=== PATIENT | female | born 1935 | race Caucasian/White ===

== ENCOUNTER 2021-08-28 15:23 | Inpatient (IN) | payer OTHER, MEDICARE ==
[2021-08-28] MEDS ORDERED: ACETAMINOPHEN 325 MG TABLET (FP) PO ONE (16:30)
[2021-08-28] MEDS ORDERED: LIDOCAINE HCL 2% (50ML VIAL) SQ ONE (17:32)
[2021-08-28] MEDS ORDERED: ACETAMINOPHEN 325 MG TABLET (FP) ONE (17:42)
[2021-08-28] MEDS ORDERED: LIDOCAINE HCL 2% (20ML MULTI-DOSE VIAL) ONE (17:42)
[2021-08-28 18:29] LABS: BASO % 1.1 % (0-2.0); EOS % 0.9 % (0-4.5); HEMATOCRIT 35.6 % (32.4-45.2); HEMOGLOBIN 11.9 GM/dL (10.7-15.3); LYMPH % 19.9 % (8-40); MCH 30.9 pg (25.7-33.7); MCHC 33.5 g/dl (32.0-36.0); MEAN CELL VOLUME 92.2 fl (80-96); MEAN PLT VOLUME 8.3 fl (7.5-11.1); MONO % 7.5 % (3.8-10.2); NEUT % 70.6 % (42.8-82.8); PLATELET COUNT 299 10^3/uL (134-434); RBC 3.86 M/mm3 (3.60-5.2); RDW 13.7 % (11.6-15.6)
[2021-08-28 18:30] LABS: INR 0.98 (0.83-1.09); PROTHROMBIN TIME (PATIENT) 11.5 SEC (9.7-13.0)
[2021-08-28 18:46] LABS: ALBUMIN 3.7 g/dl (3.4-5.0); BLOOD UREA NITROGEN 11.5 mg/dL (7-18)
[2021-08-28 18:49] LABS: CREATININE 0.6 mg/dL (0.55-1.3)
[2021-08-28 18:50] LABS: BILIRUBIN,TOTAL 0.4 mg/dL (0.2-1)
[2021-08-28 18:51] LABS: TOT PROT 6.8 g/dl (6.4-8.2)
[2021-08-28] MEDS ORDERED: ACETAMINOPHEN 325 MG TABLET (FP) PO PRN (23:33)
[2021-08-29 01:12] LABS: EPI CELLS 11 /uL (0-25.1); HYALINE CASTS 2 /uL (0-3.1); PH,URINE 6.5 (5.0-8.0); URINE APPEARANCE CLOUDY; URINE BACTERIA 6168 /uL (0-1359); URINE BILIRUBIN NEGATIVE (NEGATIVE); URINE COLOR YELLOW; URINE GLUCOSE (UA) NEGATIVE (NEGATIVE); URINE KETONE NEGATIVE (NEGATIVE); URINE LEUK ESTERASE 3+ (NEGATIVE); URINE NITRITE POSITIVE (NEGATIVE); URINE PROTEIN TRACE (NEGATIVE); URINE RBC 32 /uL (0-23.9); URINE UROBILINOGEN 0.2 mg/dL (0.2-1.0); URINE WBC 1486 /uL (0-25.8)
[2021-08-29 02:39] VITALS: BMI 23.1
[2021-08-29] MEDS ORDERED: cefTRIAXone SODIUM 1 GM VIAL ONE ×2 (02:48→10:29)
[2021-08-29] MEDS ORDERED: DEXTROSE 5%-WATER - 50 ML IVPB ONE ×2 (02:49→10:29)
[2021-08-29] MEDS: CEFTRIAXONE 1 GM in DEXTROSE 5%-WATER - 50 ML IVPB SCH ×2 (03:00→10:32)
[2021-08-29] MEDS ORDERED: SODIUM CHLORIDE 1,000 ML IV SCH (04:00)
[2021-08-29 09:29] LABS: HEMATOCRIT 32.1 % (32.4-45.2); HEMOGLOBIN 10.9 GM/dL (10.7-15.3); MCH 31.5 pg (25.7-33.7); MEAN CELL VOLUME 92.6 fl (80-96); MEAN PLT VOLUME 8.3 fl (7.5-11.1); PLATELET COUNT 278 10^3/uL (134-434); RBC 3.46 M/mm3 (3.60-5.2); RDW 13.5 % (11.6-15.6); WHITE BLOOD COUNT 7.1 K/mm3 (4.0-10.0)
[2021-08-29] MEDS ORDERED: HYDROCHLOROTHIAZIDE 12.5 MG CAPSULE (FP) PO SCH (10:00)
[2021-08-29] MEDS ORDERED: LISINOPRIL 20 MG TABLET PO SCH (10:00)
[2021-08-29 14:01] LABS: BLOOD UREA NITROGEN 10.1 mg/dL (7-18); CALCIUM 8.2 mg/dL (8.5-10.1); CREATININE 0.6 mg/dL (0.55-1.3); MAGNESIUM 1.9 mg/dL (1.8-2.4); PHOSPHOROUS 2.8 mg/dL (2.5-4.9)
[2021-08-29] MEDS ORDERED: MIDAZOLAM HCL 2 MG/2 ML SINGLE DOSE VIAL ONE (14:25)
[2021-08-29] MEDS ORDERED: ROPIVACAINE HCL 0.5% 30ML VIAL ONE (14:27)
[2021-08-29] MEDS ORDERED: PROPOFOL 20 ML ONE ×3 (14:39→16:27)
[2021-08-29] MEDS ORDERED: LIDOCAINE HCL/PF 2% SDV 5ML VIAL ONE (14:39)
[2021-08-29] MEDS ORDERED: ceFAZolin SODIUM 1 GM VIAL ONE (15:12)
[2021-08-29] MEDS ORDERED: ceFAZolin 2 GRAM PREMIX BAG IVPB ONE (15:14)
[2021-08-29] MEDS ORDERED: ONDANSETRON 4 MG/2 ML VIAL IVPUSH PRN (15:25)
[2021-08-29] MEDS ORDERED: LACTATED RINGERS SOLUTION 1,000 ML IV SCH (15:30)
[2021-08-29] MEDS: SODIUM CHLORIDE 1,000 ML IV SCH (19:03)
[2021-08-29] MEDS: ACETAMINOPHEN 325 MG TABLET (FP) PO PRN (21:47)
[2021-08-29] MEDS ORDERED: ATORVASTATIN CA 10 MG TABLET (FP) PO SCH ×2 (22:00)
[2021-08-29] MEDS ORDERED: CEFAZOLIN 2 GM in DEXTROSE 5%-WATER - 100 ML IVPB SCH (22:00)
[2021-08-29] MEDS: CEFAZOLIN 2 GM in DEXTROSE 5%-WATER - 50 ML IVPB SCH (22:43)
[2021-08-30] MEDS: CEFAZOLIN 2 GM in DEXTROSE 5%-WATER - 50 ML IVPB SCH (02:47)
[2021-08-30] MEDS: ACETAMINOPHEN 325 MG TABLET (FP) PO PRN ×2 (05:17→09:49)
[2021-08-30 08:50] LABS: BASO % 0.3 % (0-2.0); HEMATOCRIT 29.2 % (32.4-45.2); LYMPH % 9.2 % (8-40); MCH 31.3 pg (25.7-33.7); MCHC 34.3 g/dl (32.0-36.0); MEAN CELL VOLUME 91.3 fl (80-96); MEAN PLT VOLUME 7.6 fl (7.5-11.1); MONO % 8.9 % (3.8-10.2); NEUT % 81.6 % (42.8-82.8); PLATELET COUNT 225 10^3/uL (134-434); RBC 3.19 M/mm3 (3.60-5.2); RDW 13.5 % (11.6-15.6); WHITE BLOOD COUNT 9.9 K/mm3 (4.0-10.0)
[2021-08-30] MEDS ORDERED: cefTRIAXone SODIUM 1 GM VIAL ONE (09:13)
[2021-08-30] MEDS ORDERED: DEXTROSE 5%-WATER - 50 ML IVPB ONE (09:14)
[2021-08-30] MEDS: SODIUM CHLORIDE 1,000 ML IV SCH (09:49)
[2021-08-30] MEDS ORDERED: HYDROCHLOROTHIAZIDE 12.5 MG CAPSULE (FP) PO SCH (10:00)
[2021-08-30] MEDS ORDERED: LISINOPRIL 20 MG TABLET PO SCH (10:00)
[2021-08-30] MEDS ORDERED: ASPIRIN 325 MG TABLET PO SCH ×2 (10:00)
[2021-08-30] MEDS ORDERED: CEFTRIAXONE 1 GM in DEXTROSE 5%-WATER - 50 ML IVPB SCH (10:00)
[2021-08-30] MEDS: traMADol HCL 50 MG TABLET PO PRN ×2 (11:50→17:02)
[2021-08-30 12:52] LABS: ALBUMIN 2.8 g/dl (3.4-5.0); BILIRUBIN,TOTAL 0.9 mg/dL (0.2-1); BLOOD UREA NITROGEN 8.9 mg/dL (7-18); CALCIUM 7.8 mg/dL (8.5-10.1); CREATININE 0.6 mg/dL (0.55-1.3); TOT PROT 5.8 g/dl (6.4-8.2)
[2021-08-30 13:22] VITALS: BP 112/64; PULSE 93; TEMP 99
== END 2021-08-30 18:40 | disposition home health service (06) | DRG 493 ==
LOC: JER 15:23 → JERFT 15:23 → JERBED 20:35 → J6S 08-29 02:12
PROVIDERS: ADMIT Internal Medicine
PROC: 2W3QX2Z Immobilization of Right Lower Leg using Cast (ICD-10-PCS; 2021-08-28)
PROC: 0QSG04Z Reposition Right Tibia with Internal Fixation Device, Open Approach (ICD-10-PCS; 2021-08-29)
PROC: 0QSJ04Z Reposition Right Fibula with Internal Fixation Device, Open Approach (ICD-10-PCS; principal; 2021-08-29 14:30)
DX: S82.841A Displaced bimalleolar fracture of right lower leg, initial encounter for closed fracture (principal); N39.0 Urinary tract infection, site not specified; I10 Essential (primary) hypertension; E78.5 Hyperlipidemia, unspecified; W19.XXXA Unspecified fall, initial encounter; Y93.9 Activity, unspecified; Y92.89 Other specified places as the place of occurrence of the external cause; Y99.9 Unspecified external cause status; M81.0 Age-related osteoporosis without current pathological fracture
CPT/HCPCS: 36415; 73610-TC-RT-FY; 73630-TC-RT-FY; 76000-TC-FY; 80048; 80053; 81003; 83735; 84100; 85025; 85027; 85610; 86850; 86900; 86901; 87086; 87186; 93005; 93010; 93306-TC; 94760; 97116-GP; 97162-GP; 99285-25; C9803; U0003; U0005

== ENCOUNTER 2024-01-12 18:57 | Emergency (ER) | payer OTHER ==
[2024-01-12 19:19] VITALS: RESP 18; TEMP 98; BMI 23.8
[2024-01-12] MEDS ORDERED: ONDANSETRON 4 MG/2 ML VIAL ONE (20:18)
[2024-01-12] MEDS ORDERED: ACETAMINOPHEN INJECTION 100 ML IVPB ONE (20:18)
[2024-01-12] MEDS ORDERED: FAMOTIDINE 20 MG/50 ML IVPB 20 MG/50 ML MG IVPB ONE (20:18)
[2024-01-12] MEDS: SODIUM CHLORIDE 1,000 ML IV STA (20:36)
[2024-01-12] MEDS: ACETAMINOPHEN 1000 MG/100 ML BAG IVPB ONE (20:36)
[2024-01-12] MEDS: FAMOTIDINE 20 MG/50 ML IVPB 20 MG/50 ML MG IVPB ONE (20:36)
[2024-01-12] MEDS: ONDANSETRON 4 MG/2 ML VIAL IVPUSH ONE (20:36)
[2024-01-12 20:41] LABS: HEMATOCRIT 38.3 % (32.4-45.2); HEMOGLOBIN 12.8 GM/dL (10.7-15.3); MCH 30.1 pg (25.7-33.7); MCHC 33.3 g/dl (32.0-36.0); MEAN CELL VOLUME 90.3 fl (80-96); MEAN PLT VOLUME 7.7 fl (7.5-11.1); PLATELET COUNT 292 10^3/uL (134-434); RBC 4.24 M/mm3 (3.60-5.2); RDW 13.6 % (11.6-15.6); WHITE BLOOD COUNT 11.4 K/mm3 (4.0-10.0)
[2024-01-12 20:56] LABS: INR 1.06 (0.83-1.09); PROTHROMBIN TIME (PATIENT) 12.3 SEC (9.7-13.0)
[2024-01-12 20:59] LABS: ACTIVATED PTT 29.2 SECONDS (25.2-36.5)
[2024-01-12 21:00] LABS: POTASSIUM 3.8 mmol/L (3.5-5.1)
[2024-01-12 21:02] LABS: CALCIUM 8.9 mg/dL (8.5-10.1)
[2024-01-12 21:03] LABS: ALBUMIN 3.5 g/dl (3.4-5.0); BLOOD UREA NITROGEN 19.4 mg/dL (7-18)
[2024-01-12 21:05] LABS: CREATININE 0.8 mg/dL (0.55-1.3)
[2024-01-12 21:07] LABS: BILIRUBIN,TOTAL 0.6 mg/dL (0.2-1); TOT PROT 6.8 g/dl (6.4-8.2)
[2024-01-12 21:47] LABS: ANISOCYTOSIS 0; MACROCYTOSIS 0
[2024-01-12 21:50] LABS: MAGNESIUM 1.8 mg/dL (1.8-2.4)
[2024-01-12 21:54] LABS: PHOSPHOROUS 3.8 mg/dL (2.5-4.9)
[2024-01-12 21:57] LABS: EPI CELLS 13 /uL (0-25.1); HYALINE CASTS 5 /uL (0-3.1); URINE APPEARANCE CLEAR; URINE BACTERIA 12 /uL (0-1359); URINE BILIRUBIN NEGATIVE (NEGATIVE); URINE COLOR YELLOW; URINE GLUCOSE (UA) NEGATIVE (NEGATIVE); URINE KETONE 1+ (NEGATIVE); URINE LEUK ESTERASE TRACE (NEGATIVE); URINE NITRITE NEGATIVE (NEGATIVE); URINE PROTEIN NEGATIVE (NEGATIVE); URINE RBC 32 /uL (0-23.9); URINE UROBILINOGEN 0.2 mg/dL (0.2-1.0); URINE WBC 74 /uL (0-25.8)
[2024-01-12 22:18] VITALS: BP 117/61; PULSE 87
== END 2024-01-12 22:19 | disposition home or self-care (01) ==
LOC: JER 18:57
PROC: 3E033GC Introduction of Other Therapeutic Substance into Peripheral Vein, Percutaneous Approach (ICD-10-PCS; principal; 2024-01-12)
PROC: 3E033GC Introduction of Other Therapeutic Substance into Peripheral Vein, Percutaneous Approach (ICD-10-PCS; 2024-01-12)
PROC: 3E033NZ Introduction of Analgesics, Hypnotics, Sedatives into Peripheral Vein, Percutaneous Approach (ICD-10-PCS; 2024-01-12)
DX: R11.2 Nausea with vomiting, unspecified (principal); R10.84 Generalized abdominal pain; K52.9 Noninfective gastroenteritis and colitis, unspecified; Z20.822 Contact with and (suspected) exposure to COVID-19
CPT/HCPCS: 0241U-QW; 36415; 71045-TC-FY; 80053; 81003; 83605; 83690; 83735; 84100; 84484; 85025; 85610; 85730; 87086; 93005; 93010; 99285-25; J0131